=== PATIENT | female | born 1960 | race Caucasian/White ===

== ENCOUNTER 2023-05-18 14:39 | Outpatient (CLI) | payer BC, SELFPAY ==
--- NOTE | ~2023-05-18 | MM_ITS ---
EXAMINATION: MM screening [facility] BI w [facility] HISTORY: Screening mammogram TECHNIQUE: Craniocaudal and mediolateral oblique 3-D tomosynthesis images were obtained and synthetic 2-D images were generated. CAD analysis was submitted and interpreted. COMPARISON: 10/10/2015, 10/06/2014, 08/18/2013 BREAST PARENCHYMAL COMPOSITION: There are scattered areas of fibroglandular density. FINDINGS: No suspicious mass, calcification, or architectural distortion are identified in either mando ast to suggest malignancy. There has been no suspicious interval change. IMPRESSION: 1. No mammographic evidence of malignancy. 2. Recommend routine screening mammography in one year. BI-RADS Category 1: Negative Reviewed, dictated and finalized at location A. OR LANDSCAPER/GARDENER
== END 2023-05-18 14:40 | disposition home or self-care (01) ==
LOC: CHSIMG 14:40
PROVIDERS: PCP Family Medicine Adolescent Medicine; Visit Provider Family Medicine Adolescent Medicine
DX: Z12.31 Encounter for screening mammogram for malignant neoplasm of breast (principal)
CPT/HCPCS: 77063; 77067

== ENCOUNTER 2023-07-09 00:50 | Day surgery (SDC) | payer BC, SELFPAY ==
[2023-06-11 08:48] VITALS: BMI 24.2
--- NOTE | 2023-07-07 09:24 | SUR.PREOP ---
Patient called regarding upcoming procedure. Reviewed preop instructions, appointment times, and procedure prep.
[2023-07-09 11:14] VITALS: BP 167/82; PULSE 68; RESP 18; TEMP 36.5; O2SAT 100
--- NOTE | 2023-07-09 11:20 | WPDANESEPPF ---
Anes - Initial Pre Proc Eval Procedure: Operation Date: 07/09/23 12:30 Proposed Procedures p Colonoscopy - Armaan Salvador MD Date/Time: 07/09/23 11:20 Surgeon: Armaan Salvador MD Pre Op Diagnosis: neoplasm screening Patient Data Age: 62 Gender: F Height: 1.63 m Weight: 63.4 kg Last Vital Signs Temp 97.7 F 07/09/23 11:14 Pulse 68 07/09/23 11:14 Resp 18 07/09/23 11:14 BP 167/82 H 07/09/23 11:14 Pulse Ox 100 07/09/23 11:14 O2 Del Method Room Air 07/09/23 11:14 Allergies Allergy/AdvReac Type Severity Reaction Status Date / Time No Known Allergies Allergy Verified 07/09/23 11:13 Home Medications Medication Instructions Recorded Confirmed Type ascorbic acid (vitamin C) 1,000 mg 1 g PO DAILY 04/27/22 06/11/23 History capsule calcium acetate 668 mg (169 mg 1,200 mg PO DAILY 04/27/22 06/11/23 History calcium) tablet cholecalciferol (vitamin D3) 50 50 mcg PO DAILY 04/27/22 06/11/23 History mcg (2,000 unit) tablet multivitamin-ferrous 1 tablet PO DAILY 04/27/22 06/11/23 History fumarate-folic acid 18 mg-400 mcg tablet (Centrum Women) metformin 500 mg tablet,extended 2,000 mg PO DAILY #360 tabs 02/03/23 06/11/23 Rx release 24 hr hydrochlorothiazide 25 mg tablet See Rx Instructions .Route 05/05/23 06/11/23 Rx .COMPLEX #90 tabs lisinopril 40 mg tablet See Rx Instructions .Route 05/05/23 06/11/23 Rx .COMPLEX #90 tabs rosuvastatin 10 mg tablet 10 mg PO DAILY #90 tabs 05/05/23 06/11/23 Rx clobetasol 0.05 % topical cream 1 applic topical QHS 12 weeks #60 05/10/23 06/11/23 Rx grams biotin 1,000 mcg chewable tablet 5,000 mcg PO DAILY 05/19/23 06/11/23 History iron fum,ps comp 125 mg iron-folic 1 cap PO DAILY 06/11/23 06/11/23 History acid 1 mg-vit B comp,C no.9 capsule Patient hx anesthesia problems: none Family hx anesthesia problems: none Results Review: All pre-operative results and documents have been reviewed as part of the pre-operative evaluation. [facility] Past Medical History Medical History Diabetes Essential (primary) hypertension Mixed hyperlipidemia Social History Social History Smoking packs per day: 1 Smoking cigarettes per day: 20.0 Smoking status: Former smoker Tobacco type: cigarettes Alcohol intake: never Substance use: never Substance use type: does not use Living arrangements: with family Spiritual care concerns: No Anes - Eval Final PreProcedure Day of Procedure 07/09/23 11:20 Patient weight: normal Heart: regular rate and rhythm Lungs: clear to auscultation Airway: Mallampati scale class II Neurological: alert and oriented Last oral intake: >/= 8 hours ASA classification: III Emergent: no Anesthetic plan: proceed Anesthesia type and monitoring: general GIVS and standard monitoring Results Review: All pre-operative results and documents have been reviewed as part of the pre-operative evaluation. Informed Consent: The patient's anesthetic plan and its attendant risks and benefits were discussed with the patient/family/POA. Questions were solicited and answers provided to the satisfaction of the patient/family/POA.
[2023-07-09] MEDS: LACTATED RINGERS 1,000 ML 150 ML IV CONT (11:29)
[2023-07-09 11:30] LABS: Glucose Point of Care 108 mg/dl (65-105)
--- NOTE | 2023-07-09 12:27 | PM.HPGS ---
History of Present Illness History of Present Illness Consent: Risks, benefits, and alternatives have been discussed and questions answered. Patient agrees to proceed with procedure. Chief complaint: neoplasm screening Narrative: Selin Xavier is a 62 year old female here for first screening colonoscopy Review of Systems Constitutional: Constitutional: Denies headache(s) and Denies weakness Eyes: Eyes: Denies blurry vision ENT: Reports Normal hearing present, Denies headache(s) and Denies neck pain Cardiovascular: Cardiovascular: Denies chest pain and Denies dyspnea Respiratory: Respiratory: Denies dyspnea Gastrointestinal: Gastrointestinal: Reports no additional gastrointestinal complaints Genitourinary: Genitourinary: Denies dysuria Musculoskeletal: Musculoskeletal: Denies neck pain Integumentary/Breasts: Skin/Breast: Denies dry skin Neurologic: Reports Normal hearing present, Denies headache(s) and Denies weakness Psychiatric: Psychiatric: Denies anxiety Endocrine: Endocrine: Denies change in body appearance Hematologic/Lymphatic: Hematologic/Lymphatic: Denies easy bleeding Allergic/Immunologic: Allergic/Immunologic: Denies urticaria [facility] Past Medical History Medical History (Updated 07/09/23 @ 12:28 by Armaan Salvador MD) Colon cancer screening Diabetes Essential (primary) hypertension Mixed hyperlipidemia Social History Social History Smoking packs per day: 1 Smoking cigarettes per day: 20.0 Smoking status: Former smoker Tobacco type: cigarettes Alcohol intake: never Substance use: never Substance use type: does not use Living arrangements: with family Spiritual care concerns: No Meds Home Medications and Allergies Home Medications Medication Instructions Recorded Confirmed Type ascorbic acid (vitamin C) 1,000 mg 1 g PO DAILY 04/27/22 06/11/23 History capsule calcium acetate 668 mg (169 mg 1,200 mg PO DAILY 04/27/22 06/11/23 History calcium) tablet cholecalciferol (vitamin D3) 50 50 mcg PO DAILY 04/27/22 06/11/23 History mcg (2,000 unit) tablet multivitamin-ferrous 1 tablet PO DAILY 04/27/22 06/11/23 History fumarate-folic acid 18 mg-400 mcg tablet (Centrum Women) metformin 500 mg tablet,extended 2,000 mg PO DAILY #360 tabs 02/03/23 06/11/23 Rx release 24 hr hydrochlorothiazide 25 mg tablet See Rx Instructions .Route 05/05/23 06/11/23 Rx .COMPLEX #90 tabs lisinopril 40 mg tablet See Rx Instructions .Route 05/05/23 06/11/23 Rx .COMPLEX #90 tabs rosuvastatin 10 mg tablet 10 mg PO DAILY #90 tabs 05/05/23 06/11/23 Rx clobetasol 0.05 % topical cream 1 applic topical QHS 12 weeks #60 05/10/23 06/11/23 Rx grams biotin 1,000 mcg chewable tablet 5,000 mcg PO DAILY 05/19/23 06/11/23 History iron fum,ps comp 125 mg iron-folic 1 cap PO DAILY 06/11/23 06/11/23 History acid 1 mg-vit B comp,C no.9 capsule Allergies Allergy/AdvReac Type Severity Reaction Status Date / Time No Known Allergies Allergy Verified 07/09/23 11:13 Vital Signs Vital Signs - 24 hr 07/09/23 11:14 Temperature 97.7 F Pulse Rate 68 Respiratory Rate 18 Blood Pressure 167/82 H Pulse Oximetry 100 Oxygen Delivery Room Air Exam Const: General: comfortable and no acute distress HENMT: Face/Nose/Sinus: Normal nares present Eyes: General: appearance normal, both eyes and all related structures Neck: Neck: no JVD Resp: Auscultation: clear to auscultation bilaterally Cardio: Rate: regular rate Rhythm: regular rhythm GI: Inspection: non-distended GI Palp: Yes Soft to palpation Skin: General skin exam: normal color Neuro: General: gait normal Speech: normal speech Extrem: General: normal to inspection Psych: Mental Status: mental status grossly normal Assessment and Plan Assessment and plan (1) Colon cancer screening: Code(s): Z12.11 - Encounter for
[2023-07-09 12:45] VITALS: BP 110/48; PULSE 51; RESP 18; O2SAT 97
[2023-07-09 12:55] VITALS: BP 120/61; PULSE 52; RESP 17; O2SAT 99
[2023-07-09 13:05] VITALS: BP 129/64; PULSE 48; RESP 15; O2SAT 100
== END 2023-07-09 13:09 | disposition home or self-care (01) ==
PROVIDERS: PCP Family Medicine Adolescent Medicine; Visit Provider Internal Medicine Gastroenterology
PROC: 0DJD8ZZ Inspection of Lower Intestinal Tract, Via Natural or Artificial Opening Endoscopic (ICD-10-PCS; CPT 45378; principal; 2023-07-09 12:30)
DX: Z12.11 Encounter for screening for malignant neoplasm of colon (principal); D12.3 Benign neoplasm of transverse colon; K57.30 Diverticulosis of large intestine without perforation or abscess without bleeding; K64.8 Other hemorrhoids; E11.9 Type 2 diabetes mellitus without complications; E78.2 Mixed hyperlipidemia; I10 Essential (primary) hypertension; Z87.891 Personal history of nicotine dependence; Z79.84 Long term (current) use of oral hypoglycemic drugs
CPT/HCPCS: 45385; 82948; 88305; J2704; J7120

== ENCOUNTER 2024-07-14 08:08 | Outpatient (CLI) | payer BC, SELFPAY ==
--- NOTE | ~2024-07-14 | MM_ITS ---
EXAMINATION: MM screening [facility] HISTORY: Screening TECHNIQUE: Craniocaudal and mediolateral oblique 3-D tomosynthesis images were obtained and synthetic 2-D images were generated. CAD analysis was submitted and interpreted. COMPARISON: No prior mammogram is available for comparison at this institution. BREAST PARENCHYMAL COMPOSITION: Not dense: There are scattered areas of fibroglandular density. FINDINGS: There is no evidence of suspicious mass, calcification, or architectural distortion to sugg est malignancy in either breast. There has been no suspicious interval change. IMPRESSION: 1. No mammographic evidence of malignancy. 2. Recommend routine screening mammography in one year. 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
== END 2024-07-14 08:09 | disposition home or self-care (01) ==
PROVIDERS: PCP Family Medicine Adolescent Medicine; Visit Provider Family Medicine Adolescent Medicine
DX: Z12.31 Encounter for screening mammogram for malignant neoplasm of breast (principal)
CPT/HCPCS: 77063; 77067